=== PATIENT | female | born 1960 | race Caucasian/White ===

== ENCOUNTER 2017-08-16 12:11 | Inpatient (IN) | payer OTHER ==
[~2017-08-16] VITALS: Ht 160 cm; Wt 85.4 kg
[2017-08-16 12:11] VITALS: BP_SYST 180
[2017-08-16] MEDS ORDERED: hydrALAZINE HCL 25 MG TABLET PO ONE (12:30)
[2017-08-16 12:59] LABS: BASOPHILS # (AUTO) 0.1 K/uL (0.0-0.2); BASOPHILS % (AUTO) 0.6 % (0.0-2.0); EOSINOPHILS # (AUTO) 0.1 K/uL (0.0-0.4); EOSINOPHILS % (AUTO) 1.4 % (0.0-4.0); HEMATOCRIT 43.8 % (36-48); HEMOGLOBIN 14.1 g/dL (12.0-16.0); LYMPHOCYTES # (AUTO) 2.9 K/uL (1.0-5.5); LYMPHOCYTES % (AUTO) 30.7 % (20.5-51.5); MEAN CORPUSCULAR HEMOGLOBIN 28 pg (27-31); MEAN CORPUSCULAR HGB CONC 32 % (32-36); MEAN CORPUSCULAR VOLUME 87 fL (79.0-98.0); MONOCYTES # (AUTO) 0.7 K/uL (0.0-1.0); MONOCYTES % (AUTO) 7.2 % (1.7-9.3); NEUTROPHILS # (AUTO) 5.5 K/uL (1.8-7.7); NEUTROPHILS % (AUTO) 60.1 % (40.0-70.0); PLATELET COUNT (AUTO) 294 K/uL (130-430); RED BLOOD CELL COUNT(AUTO) 5.02 MIL/uL (4.2-6.2); RED CELL DISTRIBUTION WIDTH 13.3 % (9.0-15.0); WHITE BLOOD COUNT (AUTO) 9.3 K/uL (4.8-10.8)
[2017-08-16 13:02] LABS: CALCIUM 9.5 mg/dL (8.4-11.0); CREATININE 0.66 mg/dL (0.55-1.30); POTASSIUM 3.6 mmol/L (3.5-5.1)
[2017-08-16 13:16] LABS: ALBUMIN 4.1 g/dL (3.4-4.8); FREE T4 (FREE THYROXINE) 1.2 ng/dl (0.8-1.5); THYROID STIMULATING HORMONE 1.18 uIu/mL (0.36-3.74); TOTAL BILIRUBIN 0.4 mg/dL (0.0-1.0)
[2017-08-16] MEDS ORDERED: LOSA50TA3 PO (13:39)
[2017-08-16] MEDS ORDERED: LEVO88TA2 PO (13:39)
[2017-08-16] MEDS ORDERED: HYDROCHLOROTHIAZIDE 12.5 MG CAPSULE (HCTZ) PO ONE (13:45)
[2017-08-16] MEDS ORDERED: IBUPROFEN 800 MG TABLET PO ONE (14:00)
[2017-08-16] MEDS ORDERED: ONDANSETRON HCL 4 MG/2 ML VIAL IVP ONE (15:15)
[2017-08-16] MEDS ORDERED: NACL 0.9% 1,000 ML IV ONE (15:15)
[2017-08-16] MEDS ORDERED: LABETALOL 100 MG/ 20ML VIAL IVP ONE (15:15)
[2017-08-16 17:10] VITALS: BP_SYST 157
[2017-08-16 20:00] VITALS: BP_SYST 127
[2017-08-16] MEDS ORDERED: ZOLPIDEM TARTRATE 5 MG TABLET PO PRN (20:15)
[2017-08-16] MEDS ORDERED: LABETALOL 100 MG/ 20ML VIAL IVP PRN (20:15)
[2017-08-16] MEDS: PANTOPRAZOLE SODIUM 40 MG TAB PO SCH (20:43)
[2017-08-16] MEDS: CARVEDILOL 6.25 MG TABLET (COREG) PO SCH (20:44)
[2017-08-16] MEDS: ACETAMINOPHEN 325 MG TABLET PO PRN (20:45)
[2017-08-17 01:00] VITALS: BP_SYST 103
[2017-08-17 06:54] LABS: BASOPHILS % (AUTO) 0.5 % (0.0-2.0); EOSINOPHILS # (AUTO) 0.2 K/uL (0.0-0.4); EOSINOPHILS % (AUTO) 2.2 % (0.0-4.0); HEMATOCRIT 39.2 % (36-48); HEMOGLOBIN 12.9 g/dL (12.0-16.0); LYMPHOCYTES # (AUTO) 2.4 K/uL (1.0-5.5); MEAN CORPUSCULAR HEMOGLOBIN 29 pg (27-31); MEAN CORPUSCULAR HGB CONC 33 % (32-36); MEAN CORPUSCULAR VOLUME 87 fL (79.0-98.0); MONOCYTES # (AUTO) 0.6 K/uL (0.0-1.0); MONOCYTES % (AUTO) 8.2 % (1.7-9.3); NEUTROPHILS # (AUTO) 4.6 K/uL (1.8-7.7); NEUTROPHILS % (AUTO) 58.1 % (40.0-70.0); PLATELET COUNT (AUTO) 270 K/uL (130-430); RED BLOOD CELL COUNT(AUTO) 4.53 MIL/uL (4.2-6.2); RED CELL DISTRIBUTION WIDTH 13.5 % (9.0-15.0); WHITE BLOOD COUNT (AUTO) 7.8 K/uL (4.8-10.8)
[2017-08-17] MEDS ORDERED: LEVOTHYROXINE SODIUM 0.088 MG TABLET PO SCH (07:00)
[2017-08-17 07:07] LABS: CALCIUM 8.9 mg/dL (8.4-11.0); CREATININE 0.69 mg/dL (0.55-1.30)
[2017-08-17 07:45] LABS: ALBUMIN 3.5 g/dL (3.4-4.8); FREE T4 (FREE THYROXINE) 1.2 ng/dl (0.8-1.5); THYROID STIMULATING HORMONE 1.11 uIu/mL (0.36-3.74); TOTAL BILIRUBIN 0.6 mg/dL (0.0-1.0)
[2017-08-17 08:15] VITALS: BP_SYST 144
[2017-08-17] MEDS ORDERED: LOSARTAN POTASSIUM 50 MG TABLET (COZAAR) PO SCH ×2 (09:00)
[2017-08-17] MEDS: CARVEDILOL 6.25 MG TABLET (COREG) PO SCH (09:50)
[2017-08-17] MEDS: PANTOPRAZOLE SODIUM 40 MG TAB PO SCH (09:50)
[2017-08-17] MEDS: ACETAMINOPHEN 325 MG TABLET PO PRN (09:54)
[2017-08-17 11:50] LABS: BILIRUBIN,URINE NEGATIVE (NEGATIVE); BLOOD, URINE NEGATIVE (NEGATIVE); CLARITY/URINE CLEAR (CLEAR); COLOR,URINE YELLOW (YELLOW); GLUCOSE,URINE NEGATIVE (NEGATIVE); KETONES,URINE NEGATIVE (NEGATIVE); LEUKOCYTE ESTERASE ,URINE NEGATIVE (NEGATIVE); NITRITE, URINE NEGATIVE (NEGATIVE); PROTEIN URINE NEGATIVE (NEGATIVE); UROBILINOGEN,URINE 0.2 (0.2-1.0)
[2017-08-17 12:15] VITALS: BP_SYST 145
[2017-08-17 15:59] VITALS: BP_SYST 137
[2017-08-17] MEDS ORDERED: ASPI-1063 PO (16:08)
[2017-08-17] MEDS ORDERED: COR12.5 PO (16:08)
[2017-08-17 16:15] VITALS: BP_SYST 127
== END 2017-08-17 17:35 | disposition home or self-care (01) | DRG 305 ==
LOC: SED 12:11 → STU 16:35
PROVIDERS: ADMIT Internal Medicine; ATTEND Internal Medicine
DX: I10 Essential (primary) hypertension (principal); I65.29 Occlusion and stenosis of unspecified carotid artery; E03.9 Hypothyroidism, unspecified; E66.9 Obesity, unspecified; Z79.899 Other long term (current) drug therapy; Z88.6 Allergy status to analgesic agent; Z88.8 Allergy status to other drugs, medicaments and biological substances; Z68.33 Body mass index [BMI] 33.0-33.9, adult; Z82.49 Family history of ischemic heart disease and other diseases of the circulatory system; Z83.3 Family history of diabetes mellitus; Z90.710 Acquired absence of both cervix and uterus; Z98.51 Tubal ligation status
CPT/HCPCS: 36415; 70450-TC; 71010; 80053; 81003; 82306; 82607; 83036; 83735-TC; 84439; 84443-TC; 84484; 85025; 87040-TC; 93005; 93306; 93880; 96374; 96375; 99285; J2405; J3490; J7030

== ENCOUNTER 2017-08-24 09:12 | Outpatient (CLI) | payer OTHER ==
[~2017-08-24 09:12] MED LIST: ASPI-1063 PO; COR12.5 PO; LEVO88TA2 PO; LOSA50TA3 PO
== END 2017-08-24 20:25 | disposition home or self-care (01) ==
LOC: SMI 09:12
PROVIDERS: ATTEND Internal Medicine
DX: Z12.31 Encounter for screening mammogram for malignant neoplasm of breast (principal)
CPT/HCPCS: 70544; 70551; 77067

== ENCOUNTER 2017-11-10 09:50 | Inpatient (IN) | payer OTHER ==
[~2017-11-10] VITALS: Ht 160 cm; Wt 83.9 kg
[2017-11-10] VITALS (7 sets, daily range): BP systolic 129–162
--- NOTE | 2017-11-10 09:58 | NUR ---
Pt placed in bed 8
--- NOTE | 2017-11-10 10:01 | NUR ---
Pt complains of having blood in sputum in the morning at and at night since Monday. Pt states she went to the doctor and was placed on antibiotics. Pt states her highest fever was 102. Per patient, she feels nauseous possibly due to coughing but denies vomiting. No other injuries/complaints per patient or noted. Son at bedside.
[2017-11-10] MEDS ORDERED: ALBUTEROL SULFATE 0.083% 2.5 MG/3 ML VIAL.NEB INH ONE ×2 (10:30→10:45)
--- NOTE | 2017-11-10 10:30 | NUR ---
RT at patient bedside administering breathing treatment. Pt tolerated well.
--- NOTE | 2017-11-10 10:36 | NUR ---
ER Dr. Otto at bedside explaining results to patient.
[2017-11-10] MEDS ORDERED: LOSA100T11 PO (10:41)
--- NOTE | 2017-11-10 10:42 | NUR ---
Medication reconciliation completed with information provided by patient. Any prior medication reconciliation on file was reviewed and corrected.
[2017-11-10] MEDS ORDERED: LEVOFLOXACIN 500 MG/D5W 100 ML IV ONE (10:45)
[2017-11-10] MEDS ORDERED: NACL 0.9% 1,000 ML IV ONE (10:45)
--- NOTE | 2017-11-10 11:05 | NUR ---
Medications were given, pt tolerated well. No adverse reaction, will continue to monitor.
[2017-11-10 11:17] LABS: BILIRUBIN,URINE NEGATIVE (NEGATIVE); BLOOD, URINE NEGATIVE (NEGATIVE); CLARITY/URINE CLEAR (CLEAR); COLOR,URINE YELLOW (YELLOW); GLUCOSE,URINE NEGATIVE (NEGATIVE); KETONES,URINE NEGATIVE (NEGATIVE); LEUKOCYTE ESTERASE ,URINE NEGATIVE (NEGATIVE); NITRITE, URINE NEGATIVE (NEGATIVE); PH,URINE 6.5 (5.0-8.0); PROTEIN URINE NEGATIVE (NEGATIVE); UROBILINOGEN,URINE 0.2 (0.2-1.0)
[2017-11-10 11:19] LABS: BASOPHILS # (AUTO) 0.1 K/uL (0.0-0.2); BASOPHILS % (AUTO) 0.5 % (0.0-2.0); EOSINOPHILS % (AUTO) 0.2 % (0.0-4.0); HEMATOCRIT 42.2 % (36-48); HEMOGLOBIN 13.8 g/dL (12.0-16.0); LYMPHOCYTES % (AUTO) 14.1 % (20.5-51.5); MEAN CORPUSCULAR HEMOGLOBIN 28 pg (27-31); MEAN CORPUSCULAR HGB CONC 33 % (32-36); MEAN CORPUSCULAR VOLUME 85 fL (79.0-98.0); MONOCYTES # (AUTO) 0.9 K/uL (0.0-1.0); MONOCYTES % (AUTO) 6.5 % (1.7-9.3); NEUTROPHILS # (AUTO) 11.3 K/uL (1.8-7.7); NEUTROPHILS % (AUTO) 78.7 % (40.0-70.0); PLATELET COUNT (AUTO) 240 K/uL (130-430); RED BLOOD CELL COUNT(AUTO) 4.94 MIL/uL (4.2-6.2); RED CELL DISTRIBUTION WIDTH 12.8 % (9.0-15.0); WHITE BLOOD COUNT (AUTO) 14.3 K/uL (4.8-10.8)
[2017-11-10 11:43] LABS: POTASSIUM 3.2 mmol/L (3.5-5.1)
[2017-11-10 11:44] LABS: ALBUMIN 3.2 g/dL (3.4-4.8); CALCIUM 9.4 mg/dL (8.4-11.0); CREATININE 0.66 mg/dL (0.55-1.30); TOTAL BILIRUBIN 0.4 mg/dL (0.0-1.0)
[2017-11-10 12:06] LABS: PROTHROMBIN TIME 9.8 SECS (9.5-12.5)
--- NOTE | 2017-11-10 12:18 | NUR ---
Transfer to Telemetry via ACLS protocol. Licensed nurse present. IV present no signs or symptoms of infiltration.
--- NOTE | 2017-11-10 12:18 | NUR ---
Patient will be admitted to care of Dr. Lal. Admitted to Telemetry unit. Will go to room 111A. Belongings list completed. Summary report printed. Report will be given at bedside.
--- NOTE | 2017-11-10 12:21 | NUR ---
ADMISSION NOTE Received patient from ER via gurney. Patient admitted with diagnosis of Sepsis and PNA. Patient is awake, alert, oriented X 4. Patient oriented to hospital room, call light, toileting, pain management and safety-teach back done. Patient informed that Yvrose will be her nurse and that their room number is 111-A. Personal belongings checked and Belongings List documented. Call light within reach.
--- NOTE | 2017-11-10 13:00 | NUR ---
Note Report rec'd from Kristy admit RN for continuation of care. Pt was oriented to nursing routines and procedures at this time. Tele unit attached and intact at this time. Pt's IV in left hand intact and patent infusing IVF's well at this time. No needs noted. Call light within reach.
[2017-11-10] MEDS ORDERED: POTASSIUM CHLORIDE 20 MEQ TAB.PRT.SR PO ONE (15:00)
[2017-11-10] MEDS ORDERED: IBUPROFEN 600 MG TABLET PO PRN (15:00)
--- NOTE | 2017-11-10 15:10 | NUR ---
Note Pt was seen and assessed by Dr Lal at this time, orders written and carried out. Pt resting in bed had breathing treatments and IVF's infusing well through left hand at this time. Call light withinr each.
[2017-11-10] MEDS ORDERED: DEXTROSE 50% JECT 50 ML DISP.SYRIN IVP PRN (15:15)
[2017-11-10] MEDS ORDERED: PROMETHAZINE-DM 6.25 MG-15 MG/5 ML UDC PO PRN (15:15)
[2017-11-10] MEDS ORDERED: INSULIN REGULAR, HUMAN 100 UNITS/ML, 10 ML VIAL (novoLIN R) SUBCUT PRN (15:15)
[2017-11-10] MEDS ORDERED: PANTOPRAZOLE SODIUM 40 MG TAB ONE (15:35)
[2017-11-10] MEDS: LR 1,000 ML IV SCH (15:37)
[2017-11-10] MEDS: PANTOPRAZOLE SODIUM 40 MG TAB PO SCH ×2 (15:37→21:00)
[2017-11-10] MEDS ORDERED: LEVOFLOXACIN 250 MG/D5W 50 ML IV ONE (16:00)
[2017-11-10] MEDS: ALBUTEROL SULFATE 0.083% 2.5 MG/3 ML VIAL.NEB INH SCH ×3 (16:49→23:00)
--- NOTE | 2017-11-10 18:25 | NUR ---
Note Pt resting in bed. Pt receiving her breathing treatments as scheduled and as needed No SOB/resp distress or chest pain/discomfort noted at this time. Pt's tele unit attached and intact at this time. IV in left hand intact and patent infusing IVF's. Pt checked on q1' and PRN for needs and care. No needs noted at this time. Call light within reach.
--- NOTE | 2017-11-10 19:15 | NUR ---
change of shift.pt.presents stable status.pt.presents cough:nsg/rt to collect sputum.pt.presents respiratory status breathing pattern labored slight degree.no respiratory distress/discomfort.pt.presents iv fluids infusing via peripheral access;pt.has requested to be disconnect to attend to restroom.pt.has requested pajama pants;tracy day shift assisted. w/iv fluids lock procurement of the pajama pants.
--- NOTE | 2017-11-10 19:25 | NUR ---
Sydnee Marin, dialed [phone], s/w Arelis.
--- NOTE | 2017-11-10 20:00 | NUR ---
pt.assessed.v/s assessed;values w/in normal limits.no c/o pain,nausea.iv fluids re-connected iv fluids infusing. no c/o pain,nausea.i have apprised the pt.that snacks are available throughout the night.no requests@this hour. pt.has sated she will require her sleep medication.call light/telephone w/in the pt's reach.
--- NOTE | 2017-11-10 20:30 | NUR ---
i have assessed the blood glucose;111/mg dl.no requests@this hour. returned an earlier paged/reza. apprised me that no isolation:t/b was necessary for the pt.pt.had presented cough episodes manifesting blood.
--- NOTE | 2017-11-10 21:00 | NUR ---
2100p medications administered.vibramycin,restoril:30mg po x2 capsules.no requests@this hour. iv fluids dis-connected so to facilitate the pt's ambulation to the restroom.i awaited the pt's return to bed.i have re-connected the iv fluids.call light/telephone place w/in the pt's reach.
[2017-11-10] MEDS: DOXYCYCLINE HYCLATE 100 MG CAPSULE PO SCH (21:04)
[2017-11-10] MEDS: TEMAZEPAM 15 MG CAPSULE PO PRN (21:05)
--- NOTE | 2017-11-10 21:25 | NUR ---
CONSULT SPOKE WITH RN AND SAYS THAT HE SPOKE WITH DOCTOR HERMAN REGARDING CONSULT
--- NOTE | 2017-11-10 21:31 | NUR ---
CONSULT REASON PNA FOR BRITTNEE CHRISTIANSON IS CALL SPOKE WITH NANCY
--- NOTE | 2017-11-10 22:00 | NUR ---
pt.assessed.pt.presents quiescent affect;calm,somnolent.pt.capable to reposition self. pt.general status absent distress/discomfort.pt.respiratory status absent distress/discomfort slight labored breathing pattern.iv fluids infusing.call light/telephone w/in the pt's reach.
--- NOTE | 2017-11-10 23:00 | NUR ---
pt.requested assistance to the restroom:i have disconnected the iv line:facilitating the pt's ambulation. i have reconnected the iv access.no further requests@this hour.pt.return to somnolent status.call light/ telephone placed w/in the pt's reach.
--- NOTE | 2017-11-11 | NUR ---
pt.assessed.v/s assessed;values w/in normal; limits.pt.presents quiescent affect;calm,somnolent. pt.presents general status absent distress/discomfort.respiratory status absent distress/discomfort. pt.capable to reposition self.call light/telephone w/in the pt's reach.
[2017-11-11] MEDS: LR 1,000 ML IV SCH ×3 (01:00→18:07)
--- NOTE | 2017-11-11 02:00 | NUR ---
pt.assessed.pt.capable to reposition self.pt.presents quiescent affect;calm,somnolent. pt.presents general status absent distress/discomfort.respiratory status absent distress/ discomfort.iv fluids infusing.call light/telephone w/in the pt's reach.
--- NOTE | 2017-11-11 02:51 | NUR ---
pt.assisted to the restroom.i dis-connected the iv fluids.pt.presented coughing spasm episodes. i inquired if the pt.requests cough medication:phenergan is ordered/prn;cough.pt.stated she dislikes the taste of the phenergan but wll accept the medication w/ andrey crackers;i have administered the phenergan w/ andrey crackers.i have re-connected the iv fluids.no further requests@this hour.
[2017-11-11] MEDS: ALBUTEROL SULFATE 0.083% 2.5 MG/3 ML VIAL.NEB INH SCH ×5 (03:00→19:54)
--- NOTE | 2017-11-11 04:00 | NUR ---
pt.assessed.pt.capable to reposition self.pt.presents general status absent distress/discomfort. pt.presents respiratory status calm s/p phenergan administration.iv fluids infusing.call light/ telephone w/in the pt's reach.
--- NOTE | 2017-11-11 06:26 | NUR ---
pt.assessed.pt.present no c/o pain,nausea.i have change dthe iv fluids bag,i have assessed the blood glucose;108mg/dl.no requests@this hour.call light/telephone w/in the pt's reach.
[2017-11-11 06:36] LABS: CALCIUM 8.6 mg/dL (8.4-11.0); CREATININE 0.59 mg/dL (0.55-1.30); POTASSIUM 3.7 mmol/L (3.5-5.1)
[2017-11-11 07:20] LABS: BASOPHILS % (AUTO) 0.2 % (0.0-2.0); EOSINOPHILS # (AUTO) 0.1 K/uL (0.0-0.4); EOSINOPHILS % (AUTO) 0.7 % (0.0-4.0); HEMATOCRIT 35.8 % (36-48); HEMOGLOBIN 11.6 g/dL (12.0-16.0); LYMPHOCYTES # (AUTO) 2.3 K/uL (1.0-5.5); MEAN CORPUSCULAR HEMOGLOBIN 28 pg (27-31); MEAN CORPUSCULAR HGB CONC 32 % (32-36); MONOCYTES % (AUTO) 9.5 % (1.7-9.3); NEUTROPHILS # (AUTO) 7.6 K/uL (1.8-7.7); NEUTROPHILS % (AUTO) 68.6 % (40.0-70.0); PLATELET COUNT (AUTO) 244 K/uL (130-430); RED BLOOD CELL COUNT(AUTO) 4.11 MIL/uL (4.2-6.2); RED CELL DISTRIBUTION WIDTH 12.8 % (9.0-15.0)
[2017-11-11 07:57] LABS: MEAN CORPUSCULAR VOLUME 87 fL (79.0-98.0)
[2017-11-11 08:00] VITALS: BP_SYST 123
--- NOTE | 2017-11-11 08:00 | NUR ---
Nutrition Update Shant Scale 18 noted. Pt admitted for Sepsis, Pneumonia Diet: [facility] diet BMI: 32.8 kg/m2 RD to follow per nutrition care standards.
--- NOTE | 2017-11-11 08:00 | NUR ---
Opening Note Report received from [facility] shift nurse. Patient is resting in bed. Call light is within reach and bed is in low position. IV is on the left hand 22g running LR@100. Will continue to monitor.
[2017-11-11] MEDS: DOXYCYCLINE HYCLATE 100 MG CAPSULE PO SCH ×2 (08:36→20:58)
[2017-11-11] MEDS: PANTOPRAZOLE SODIUM 40 MG TAB PO SCH ×2 (08:36→20:58)
--- NOTE | 2017-11-11 10:17 | NUR ---
Rounds Patient is resting in bed. No signs of distress noted at the moment.
[2017-11-11 12:25] VITALS: BP_SYST 129
--- NOTE | 2017-11-11 12:37 | NUR ---
Rounds Patient is restin gin bed. Family is at the bedside.
--- NOTE | 2017-11-11 14:29 | NUR ---
Rounds Patient is in stable condition. No signs of distress noted.
--- NOTE | 2017-11-11 15:16 | NUR ---
Dietitian Recommendations *Recommend CCHO 2gm Na diet w/ Soymilk q meal. *Encouraged pt to increase PO intake. Please see Nutritional Assessment for details. GIUSEPPE, RD
--- NOTE | 2017-11-11 16:18 | NUR ---
Rounds SCDS applied. Patient education on the importance of having the SCDS in place.
[2017-11-11 16:33] VITALS: BP_SYST 137
--- NOTE | 2017-11-11 18:12 | NUR ---
Closing Note Assisted the patient to the restroom and back into bed. Iv is on the left hand 22g LR @100. Scds are on. Instructed patient on how to use the IS. Call light is within reach and bed is in low position. Will endorse care to the oncoming nurse.
--- NOTE | 2017-11-11 19:13 | NUR ---
OPENING NOTE RECEIVED REPORT FROM DAY SHIFT NURSE. PT IS IN BED RESTING. PT ON RA TOLERATING WELL. NO DISTRESS NOTED. PT HAS SCD TO LOWER LEGS. SAFETY MEASURES IN PLACE, BED TO LOWEST POSITION, CALL LIGHT IS ON, SIDE RAILS UPX3. WILL CONTINUE TO MONITOR.
[2017-11-11 19:44] VITALS: BP_SYST 145
[2017-11-11] MEDS: BUDESONIDE 0.5 MG/2 ML AMPUL.NEB INH SCH (20:05)
[2017-11-11] MEDS: CARVEDILOL 12.5 MG TABLET (COREG) PO SCH (20:58)
[2017-11-11] MEDS: methylPREDNISolone SOD SUCC/PF 62.5 MG/ML VIAL IVP SCH (20:59)
[2017-11-11] MEDS ORDERED: LOSARTAN POTASSIUM 50 MG TABLET (COZAAR) PO SCH (21:00)
[2017-11-11] MEDS: TEMAZEPAM 15 MG CAPSULE PO PRN (21:07)
--- NOTE | 2017-11-11 22:02 | NUR ---
ROUNDS ASSISTED PT TO BATHROOM. PT DENIES ANY DIZZINESS, PT HAS STEADY GAIT. NO DISTRESS NOTED. PT RESTING IN BED. NO SOB NOTED. SAFETY MEASURES IN PLACE, BED TO LOWEST POSITION, BED ALARM IS ON, SIDE RAILS UPX3, CALL LIGHT WITHIN REACH. ENCOURAGED TO USE CALL LIGHT. PT VERBALIZED UNDERSTANDING.
--- NOTE | 2017-11-12 00:24 | NUR ---
ROUNDS PT IS IN BED SLEEPING. NO SOB NOTED. NO DISTRESS NOTED. SAFETY MEASURES IN PLACE, BED TO LOWEST POSITION, BED ALARM IS ON, SIDE RAILS UPX3, CALL LIGHT WITHIN REACH. WILL CONTINUE TO MONITOR.
[2017-11-12 00:30] VITALS: BP_SYST 136
[2017-11-12] MEDS: LR 1,000 ML IV SCH (05:21)
--- NOTE | 2017-11-12 06:31 | NUR ---
CLOSING NOTE PT IS RESTING IN BED. PT ON RA TOLERATING WELL. PT HAS NON-PRODUCTIVE COUGH. NO SOB NOTED. PT HAS SCD'S TO LOWER LEGS. ENCOURAGED PT TO USE IS 5X EVERY HOUR. PT VERBALIZES UNDERSTANDING. SAFETY MEASURES IN PLACE, BED TO LOWEST POSITION, BED ALARM IS ON, SIDE RAILS UPX3, CALL LIGHT WITHIN REACH. WILL ENDORSE TO BLUEPRINT DUPLICATOR.
[2017-11-12] MEDS: LEVOTHYROXINE SODIUM 0.088 MG TABLET PO SCH (07:14)
[2017-11-12 07:25] LABS: BASOPHILS % (AUTO) 0.1 % (0.0-2.0); CALCIUM 9.7 mg/dL (8.4-11.0); CREATININE 0.59 mg/dL (0.55-1.30); HEMATOCRIT 39.9 % (36-48); HEMOGLOBIN 12.9 g/dL (12.0-16.0); LYMPHOCYTES # (AUTO) 1.2 K/uL (1.0-5.5); LYMPHOCYTES % (AUTO) 13.4 % (20.5-51.5); MEAN CORPUSCULAR HEMOGLOBIN 28 pg (27-31); MEAN CORPUSCULAR HGB CONC 32 % (32-36); MEAN CORPUSCULAR VOLUME 87 fL (79.0-98.0); MONOCYTES # (AUTO) 0.2 K/uL (0.0-1.0); MONOCYTES % (AUTO) 1.9 % (1.7-9.3); NEUTROPHILS # (AUTO) 7.5 K/uL (1.8-7.7); NEUTROPHILS % (AUTO) 84.6 % (40.0-70.0); PLATELET COUNT (AUTO) 336 K/uL (130-430); POTASSIUM 4.3 mmol/L (3.5-5.1); RED CELL DISTRIBUTION WIDTH 12.6 % (9.0-15.0); WHITE BLOOD COUNT (AUTO) 8.9 K/uL (4.8-10.8)
--- NOTE | 2017-11-12 07:35 | NUR ---
OPENING NOTE PATIENT REPORT RECEIVED FROM ENGINEER SOILS NURSE. PATIENT RESTING COMFORTABLY. NO COMPLAINTS OF PAIN AT THIS TIME. NO NOTABLE SIGNS OF DISTRESS AT THIS TIME. PATIENT HAVING NON PRODUCTIVE COUGH, AWARE OF PENDING SPUTUM CULTURE. PATIENT HAS SCDS APPLIED FOR DVT PROPHYLAXIS. PATIENT HAS IVF RUNNING PER MD ORDERS. PATIENT ENCOURAGED TO CALL IF NEEDS ARISE. WILL CONTINUE TO FOLLOW UP AND MONITOR PATIENT FOR CHANGES IN STATUS. FALL PRECAUTIONS ARE IN PLACE.
[2017-11-12] MEDS: ALBUTEROL SULFATE 0.083% 2.5 MG/3 ML VIAL.NEB INH SCH ×4 (07:36→20:09)
[2017-11-12] MEDS: BUDESONIDE 0.5 MG/2 ML AMPUL.NEB INH SCH ×2 (07:39→20:25)
[2017-11-12 08:12] VITALS: BP_SYST 132
[2017-11-12] MEDS: methylPREDNISolone SOD SUCC/PF 62.5 MG/ML VIAL IVP SCH (08:25)
[2017-11-12] MEDS: ASPIRIN 81 MG TABLET(ECOTRIN) PO SCH (08:26)
[2017-11-12] MEDS: PANTOPRAZOLE SODIUM 40 MG TAB PO SCH ×2 (08:26→21:02)
[2017-11-12] MEDS: DOXYCYCLINE HYCLATE 100 MG CAPSULE PO SCH ×2 (08:26→21:02)
[2017-11-12] MEDS: CARVEDILOL 12.5 MG TABLET (COREG) PO SCH ×2 (08:28→21:02)
[2017-11-12] MEDS ORDERED: LOSARTAN POTASSIUM 50 MG TABLET (COZAAR) PO SCH ×2 (09:00→21:00)
--- NOTE | 2017-11-12 10:26 | NUR ---
NOTE PATIENT RESTING COMFORTABLY. AMBULATORY TO RESTROOM. PATIENT NEEDS ARE MET AT THIS TIME. PATIENT ENCOURAGED TO CALL IF NEEDS ARISE. PATIENT RESUMED SCDs. WILL CONTINUE TO MONITOR AND FOLLOW UP WITH PATIENT.
[2017-11-12 12:10] VITALS: BP_SYST 133
--- NOTE | 2017-11-12 12:14 | NUR ---
NOTE PATIENT RESTING COMFORTABLY. NEEDS ARE MET AT THIS TIME. PER PATIENT REQUEST IV WAS FLUSHED NOW THAT NO MAINTENANCE FLUIDS ARE RUNNING. PATIENT HAVING NO NOTABLE SIGNS OF DISTRESS AT THIS TIME. PATIENT ENCOURAGED TO CALL IF NEEDS ARISE. WILL CONTINUE TO MONITOR PATIENT FOR CHANGES IN STATUS.
--- NOTE | 2017-11-12 14:44 | NUR ---
NOTE PATIENT RESTING COMFORTABLY. NEEDS ARE MET AT THIS TIME. PATIENT ENCOURAGED TO WALK AROUND IN ROOM. CALL IF NEEDS ARISE. PATIENT ENCOURAGED TO SIT UPRIGHT IN CHAIR TO GET SECRETIONS TO BEGIN MOVING. WILL CONTINUE TO FOLLOW UP AND MONITOR. INCENTIVE SPIROMETER AT 1999.
[2017-11-12 16:09] VITALS: BP_SYST 128
--- NOTE | 2017-11-12 16:15 | NUR ---
NOTE PATIENT RESTING COMFORTABLY. NEEDS ARE MET AT THIS TIME. PER PATIENT REQUEST IV WAS FLUSHED NOW THAT NO MAINTENANCE FLUIDS ARE RUNNING. 10 ML SALINE INFUSED. PATIENT HAVING NO NOTABLE SIGNS OF DISTRESS AT THIS TIME. PATIENT ENCOURAGED TO CALL IF NEEDS ARISE. WILL CONTINUE TO MONITOR PATIENT FOR CHANGES IN STATUS.
--- NOTE | 2017-11-12 19:00 | NUR ---
CLOSING NOTE AWAITING TO GIVE REPORT TO STUDENT FINANCE ADVISOR NURSE. PATIENT RESTING COMFORTABLY. NO COMPLAINTS OF PAIN AT THIS TIME. NO NOTABLE SIGNS OF DISTRESS AT THIS TIME. PATIENT HAVING NON PRODUCTIVE COUGH, AWARE OF PENDING SPUTUM CULTURE. ENCOURAGED TO COLLECT IF ABLE. PATIENT HAS SCDS APPLIED FOR DVT PROPHYLAXIS, CURRENTLY REMOVED PATIENT IS UP IN CHAIR EATING DINNER. PATIENT HAS IVF SALINE LOCKED PER MD ORDERS. PATIENT ENCOURAGED TO CALL IF NEEDS ARISE. FALL PRECAUTIONS ARE IN PLACE.
--- NOTE | 2017-11-12 19:37 | NUR ---
OPENING NOTE RECEIVED REPORT FROM DAY SHIFT NURSE. PT IS A/OX4, SITTING ON CHAIR AT BESIDE WATCHING TV. PT ON RA TOLERATING WELL. NO SOB NOTED. PT HAS NON PRODUCTIVE COUGH. NO DISTRESS NOTED. PT DENIES ANY PAIN. SAFETY MEASURES IN PLACE, BED TO LOWEST POSITION, SIDE RAILS UPX3, CALL LIGHT WITHIN REACH. ENCOURAGED PT TO USE CALL LIGHT. PT VERBALIZES UNDERSTANDING. WILL CONTINUE TO MONITOR.
[2017-11-12 20:03] VITALS: BP_SYST 129
[2017-11-12] MEDS: methylPREDNISolone SOD SUCC 40 MG/ML VIAL IVP SCH (21:01)
[2017-11-12] MEDS: TEMAZEPAM 15 MG CAPSULE PO PRN (21:03)
--- NOTE | 2017-11-12 21:55 | NUR ---
ROUNDS PT IN BED WATCHING TV. NO SOB NOTED. PT DENIES ANY PAIN. PT RECEIVED PRN INSOMNIA MEDICATION. SAFETY MEASURES IN PLACE, BED TO LOWEST POSITION, BED ALARM IN ON, SIDE RAILS UPX3, CALL LIGHT WITHIN REACH. ENCOURAGED PT TO USE CALL LIGHT. PT VERBALIZES UNDERSTANDING. WILL CONTINUE TO MONITOR.
[2017-11-12 23:15] VITALS: BP_SYST 111
--- NOTE | 2017-11-13 00:07 | NUR ---
ROUNDS PT SLEEPING IN BED. NO SOB NOTED. SAFETY MEASURES IN PLACE, BED TO LOWEST POSITION, BED ALARM IN ON, SIDE RAILS UPX3, CALL LIGHT WITHIN REACH. WILL CONTINUE TO MONITOR.
[2017-11-13] MEDS: LEVOTHYROXINE SODIUM 0.088 MG TABLET PO SCH (06:17)
--- NOTE | 2017-11-13 06:39 | NUR ---
CLOSING NOTE PT IS AWAKE RESTING IN BED. PT IS ON RA TOLERATING WELL. NO SOB NOTED. PT HAS NON-PRODUCTIVE COUGH. SAFETY MEASURES IN PLACE, BED TO LOWEST POSITION, SIDE RAILS UPX3, CALL LIGHT WITHIN REACH. WILL ENDORSE TO DAY SHIFT NURSE.
--- NOTE | 2017-11-13 07:35 | NUR ---
Initial Note Received report from the night nurse, Anne. Pt AOX4. No signs of distress noted at this time. Bed is at lowest position, but pt refuses the bed alarm. Pt is ambulatory. Call light within reach.
[2017-11-13 07:55] VITALS: BP_SYST 134
[2017-11-13] MEDS: ASPIRIN 81 MG TABLET(ECOTRIN) PO SCH (08:57)
[2017-11-13] MEDS: PANTOPRAZOLE SODIUM 40 MG TAB PO SCH (08:57)
[2017-11-13] MEDS: CARVEDILOL 12.5 MG TABLET (COREG) PO SCH (08:58)
[2017-11-13] MEDS: methylPREDNISolone SOD SUCC 40 MG/ML VIAL IVP SCH (08:58)
[2017-11-13] MEDS: DOXYCYCLINE HYCLATE 100 MG CAPSULE PO SCH (09:00)
[2017-11-13] MEDS: ALBUTEROL SULFATE 0.083% 2.5 MG/3 ML VIAL.NEB INH SCH ×3 (09:47→15:30)
[2017-11-13] MEDS: BUDESONIDE 0.5 MG/2 ML AMPUL.NEB INH SCH (09:47)
[2017-11-13 10:03] VITALS: BP_SYST 134
--- NOTE | 2017-11-13 11:28 | NUR ---
RN Rounds Pt awake and does not shows any signs of distress at this time. Bed is at lowest position, but pt refuses the bed alarm due to pt is ambulatory. Call light within reach.
[2017-11-13] MEDS ORDERED: DOXY100C2 PO (14:50)
[2017-11-13] MEDS ORDERED: ALBMDI INH (14:52)
[2017-11-13 15:17] VITALS: BP_SYST 128
--- NOTE | 2017-11-13 15:35 | NUR ---
Discharge Note Pt has been discharged home as order by Dr. Lal. Pt is in stable condition at the time of discharge. No signs of distress noted. Transitional care documents and instruction given to pt. IV line removed gauze and pressure applied. No signs of bleeding noted. ID band removed.
[2017-11-13 21:17] LABS: MYCOPLASMA PNEUMONIAE IgM <770 U/mL (0-769)
== END 2017-11-13 15:38 | disposition home or self-care (01) | DRG 871 ==
LOC: SED 09:50 → STU 11:37 → SMU 11-12 12:58
PROVIDERS: ADMIT Internal Medicine; ATTEND Internal Medicine
DX: A41.9 Sepsis, unspecified organism (principal); J18.9 Pneumonia, unspecified organism; J45.901 Unspecified asthma with (acute) exacerbation; E44.1 Mild protein-calorie malnutrition; E03.9 Hypothyroidism, unspecified; I10 Essential (primary) hypertension; J45.909 Unspecified asthma, uncomplicated; Z88.6 Allergy status to analgesic agent; Z88.1 Allergy status to other antibiotic agents; Z79.899 Other long term (current) drug therapy; Z68.32 Body mass index [BMI] 32.0-32.9, adult
CPT/HCPCS: 36415; 71045; 80048; 80053; 81003; 82962; 83036; 83605; 83880; 84484; 85025; 85610-TC; 86480; 86710; 86738; 87040-TC; 87449; 93005; 94010; 94640; 94760; 96365; 99285; J1030; J1815; J1956; J2930; J7030; J7120

== ENCOUNTER 2017-11-20 15:07 | Outpatient (CLI) | payer OTHER ==
[~2017-11-20 15:07] MED LIST changes: +ALBMDI INH; +DOXY100C2 PO; +LOSA100T11 PO
[2017-11-20 16:08] LABS: C-REACTIVE PROTEIN QUANT 0.3 mg/dL (0-0.5); CALCIUM 9.4 mg/dL (8.4-11.0); CREATININE 0.68 mg/dL (0.55-1.30)
[2017-11-20 16:18] LABS: BASOPHILS # (AUTO) 0.1 K/uL (0.0-0.2); BASOPHILS % (AUTO) 0.6 % (0.0-2.0); EOSINOPHILS # (AUTO) 0.1 K/uL (0.0-0.4); EOSINOPHILS % (AUTO) 1.7 % (0.0-4.0); HEMOGLOBIN 13.5 g/dL (12.0-16.0); MEAN CORPUSCULAR HEMOGLOBIN 28 pg (27-31); MEAN CORPUSCULAR HGB CONC 32 % (32-36); MEAN CORPUSCULAR VOLUME 87 fL (79.0-98.0); MONOCYTES # (AUTO) 0.7 K/uL (0.0-1.0); MONOCYTES % (AUTO) 7.7 % (1.7-9.3); NEUTROPHILS # (AUTO) 4.7 K/uL (1.8-7.7); PLATELET COUNT (AUTO) 432 K/uL (130-430); RED BLOOD CELL COUNT(AUTO) 4.84 MIL/uL (4.2-6.2); RED CELL DISTRIBUTION WIDTH 13.4 % (9.0-15.0); WHITE BLOOD COUNT (AUTO) 8.6 K/uL (4.8-10.8)
[2017-11-20 19:22] LABS: ERYTHROCYTE SEDIMENTATION RATE 12 MM/HR (0-20)
[2017-11-21 08:12] LABS: RA LATEX TURBID <10.0 IU/mL (0.0-13.9)
[2017-11-21 20:14] LABS: ANTI NUCLEAR AB WITH REFLEX Positive (Negative)
== END 2017-11-20 17:49 | disposition home or self-care (01) ==
LOC: SLB 15:07
PROVIDERS: ATTEND Internal Medicine
DX: J18.9 Pneumonia, unspecified organism (principal); M19.90 Unspecified osteoarthritis, unspecified site; I10 Essential (primary) hypertension; J45.909 Unspecified asthma, uncomplicated; Z82.49 Family history of ischemic heart disease and other diseases of the circulatory system; Z83.3 Family history of diabetes mellitus; Z79.899 Other long term (current) drug therapy
CPT/HCPCS: 36415; 80048; 85025; 85651-TC; 86038; 86060; 86140; 86431

== ENCOUNTER 2017-12-13 06:55 | Outpatient (CLI) | payer OTHER ==
[2017-12-13 07:42] LABS: BASOPHILS % (AUTO) 0.4 % (0.0-2.0); EOSINOPHILS # (AUTO) 0.1 K/uL (0.0-0.4); EOSINOPHILS % (AUTO) 1.7 % (0.0-4.0); HEMATOCRIT 41.2 % (36-48); HEMOGLOBIN 13.4 g/dL (12.0-16.0); LYMPHOCYTES # (AUTO) 2.7 K/uL (1.0-5.5); LYMPHOCYTES % (AUTO) 34.3 % (20.5-51.5); MEAN CORPUSCULAR HEMOGLOBIN 28 pg (27-31); MEAN CORPUSCULAR HGB CONC 33 % (32-36); MEAN CORPUSCULAR VOLUME 87 fL (79.0-98.0); MONOCYTES # (AUTO) 0.6 K/uL (0.0-1.0); MONOCYTES % (AUTO) 8.1 % (1.7-9.3); NEUTROPHILS # (AUTO) 4.6 K/uL (1.8-7.7); NEUTROPHILS % (AUTO) 55.5 % (40.0-70.0); PLATELET COUNT (AUTO) 294 K/uL (130-430); RED BLOOD CELL COUNT(AUTO) 4.73 MIL/uL (4.2-6.2); RED CELL DISTRIBUTION WIDTH 13.8 % (9.0-15.0)
[2017-12-13 07:55] LABS: ALBUMIN 3.8 g/dL (3.4-4.8); C-REACTIVE PROTEIN QUANT 1.1 mg/dL (0-0.5); CALCIUM 9.5 mg/dL (8.4-11.0); CREATININE 0.68 mg/dL (0.55-1.30); THYROID STIMULATING HORMONE 1.27 uIu/mL (0.34-4.82); TOTAL BILIRUBIN 0.5 mg/dL (0.0-1.0); URIC ACID 3.6 mg/dL (2.4-7.0)
[2017-12-13 10:14] LABS: ERYTHROCYTE SEDIMENTATION RATE 12 MM/HR (0-20)
== END 2017-12-13 20:00 | disposition home or self-care (01) ==
LOC: SLB 06:55
PROVIDERS: ATTEND Emergency Medicine
DX: M17.0 Bilateral primary osteoarthritis of knee (principal); M25.572 Pain in left ankle and joints of left foot; M25.571 Pain in right ankle and joints of right foot; M19.072 Primary osteoarthritis, left ankle and foot; M19.071 Primary osteoarthritis, right ankle and foot; M25.542 Pain in joints of left hand; M25.541 Pain in joints of right hand
CPT/HCPCS: 36415; 80053; 82306; 82550-TC; 82607; 84443-TC; 84550-TC; 85025; 85651-TC; 86140; 86200

== ENCOUNTER 2018-01-17 09:00 | Outpatient (CLI) | payer OTHER ==
[2018-01-19 08:06] LABS: COMPLEMENT C3, SERUM 150 mg/dL (82-167); COMPLEMENT C4, SERUM 25 mg/dL (14-44)
[2018-01-20 00:02] LABS: ANTI NUCLEAR AB WITH REFLEX Positive (Negative)
== END 2018-01-17 19:30 | disposition home or self-care (01) ==
LOC: SLB 09:00
DX: M19.90 Unspecified osteoarthritis, unspecified site (principal); M16.0 Bilateral primary osteoarthritis of hip
CPT/HCPCS: 36415; 72100-TC; 72202-TC; 73521; 81374; 85651-TC; 86038; 86140; 86160

== ENCOUNTER 2018-02-22 06:40 | Outpatient (CLI) | payer OTHER ==
[2018-02-22 08:37] LABS: BILIRUBIN,URINE NEGATIVE (NEGATIVE); BLOOD, URINE NEGATIVE (NEGATIVE); CLARITY/URINE CLEAR (CLEAR); COLOR,URINE YELLOW (YELLOW); GLUCOSE,URINE NEGATIVE (NEGATIVE); KETONES,URINE NEGATIVE (NEGATIVE); LEUKOCYTE ESTERASE ,URINE NEGATIVE (NEGATIVE); NITRITE, URINE NEGATIVE (NEGATIVE); PH,URINE 5.5 (5.0-8.0); PROTEIN URINE NEGATIVE (NEGATIVE); UROBILINOGEN,URINE 0.2 (0.2-1.0)
[2018-02-22 08:50] LABS: ALBUMIN 3.7 g/dL (3.4-4.8); CALCIUM 9.1 mg/dL (8.4-11.0); CREATININE 0.79 mg/dL (0.55-1.30); POTASSIUM 4.7 mmol/L (3.5-5.1); THYROID STIMULATING HORMONE 2.29 uIu/mL (0.34-4.82); TOTAL BILIRUBIN 0.4 mg/dL (0.0-1.0)
[2018-02-22 08:52] LABS: BASOPHILS % (AUTO) 0.6 % (0.0-2.0); EOSINOPHILS # (AUTO) 0.1 K/uL (0.0-0.4); EOSINOPHILS % (AUTO) 1.7 % (0.0-4.0); HEMATOCRIT 39.7 % (36-48); LYMPHOCYTES # (AUTO) 2.2 K/uL (1.0-5.5); LYMPHOCYTES % (AUTO) 29.7 % (20.5-51.5); MEAN CORPUSCULAR HEMOGLOBIN 29 pg (27-31); MEAN CORPUSCULAR HGB CONC 33 % (32-36); MEAN CORPUSCULAR VOLUME 88 fL (79.0-98.0); MONOCYTES # (AUTO) 0.5 K/uL (0.0-1.0); MONOCYTES % (AUTO) 6.3 % (1.7-9.3); NEUTROPHILS # (AUTO) 4.5 K/uL (1.8-7.7); NEUTROPHILS % (AUTO) 61.7 % (40.0-70.0); PLATELET COUNT (AUTO) 301 K/uL (130-430); RED BLOOD CELL COUNT(AUTO) 4.53 MIL/uL (4.2-6.2); RED CELL DISTRIBUTION WIDTH 13.1 % (9.0-15.0); WHITE BLOOD COUNT (AUTO) 7.3 K/uL (4.8-10.8)
== END 2018-02-22 20:26 | disposition home or self-care (01) ==
LOC: SLB 06:40
PROVIDERS: ATTEND Internal Medicine
DX: I10 Essential (primary) hypertension (principal); E66.9 Obesity, unspecified; E03.9 Hypothyroidism, unspecified; R79.89 Other specified abnormal findings of blood chemistry
CPT/HCPCS: 36415; 80053; 80061; 81003; 83036; 84443-TC; 85025

== ENCOUNTER 2018-02-23 07:52 | Outpatient (CLI) | payer OTHER | END 2018-02-23 19:31 | disposition home or self-care (01) | LOC: SMI 07:52 | PROVIDERS: ATTEND Internal Medicine | DX: M48.02 Spinal stenosis, cervical region (principal) | CPT/HCPCS: 72141 ==

== ENCOUNTER 2018-04-16 12:52 | Outpatient (CLI) | payer OTHER ==
[~2018-04-16 12:52] MED LIST changes: -ASPI-1063 PO; +ASPI-1154 PO; -LOSA100T11 PO; +LOSA100T3 PO
== END 2018-04-16 20:53 | disposition home or self-care (01) ==
LOC: SUS 12:52
PROVIDERS: ATTEND Internal Medicine
DX: I73.9 Peripheral vascular disease, unspecified (principal); M79.605 Pain in left leg; M79.604 Pain in right leg; I10 Essential (primary) hypertension; E03.9 Hypothyroidism, unspecified
CPT/HCPCS: 93923; 93970

== ENCOUNTER 2018-04-20 14:17 | Outpatient (CLI) | payer OTHER ==
[2018-04-20 14:42] LABS: BASOPHILS % (AUTO) 0.5 % (0.0-2.0); EOSINOPHILS # (AUTO) 0.2 K/uL (0.0-0.4); EOSINOPHILS % (AUTO) 2.2 % (0.0-4.0); HEMATOCRIT 38.2 % (36-48); HEMOGLOBIN 12.8 g/dL (12.0-16.0); LYMPHOCYTES # (AUTO) 2.9 K/uL (1.0-5.5); MEAN CORPUSCULAR HEMOGLOBIN 29 pg (27-31); MEAN CORPUSCULAR HGB CONC 34 % (32-36); MEAN CORPUSCULAR VOLUME 86 fL (79.0-98.0); MONOCYTES # (AUTO) 0.5 K/uL (0.0-1.0); MONOCYTES % (AUTO) 5.5 % (1.7-9.3); NEUTROPHILS # (AUTO) 5.8 K/uL (1.8-7.7); NEUTROPHILS % (AUTO) 60.8 % (40.0-70.0); PLATELET COUNT (AUTO) 286 K/uL (130-430); RED BLOOD CELL COUNT(AUTO) 4.44 MIL/uL (4.2-6.2); RED CELL DISTRIBUTION WIDTH 12.7 % (9.0-15.0); WHITE BLOOD COUNT (AUTO) 9.4 K/uL (4.8-10.8)
[2018-04-20 14:58] LABS: CALCIUM 8.9 mg/dL (8.4-11.0); CREATININE 0.8 mg/dL (0.55-1.30); POTASSIUM 3.8 mmol/L (3.5-5.1)
[2018-04-20 15:02] LABS: ALBUMIN 3.8 g/dL (3.4-4.8); C-REACTIVE PROTEIN QUANT 1.1 mg/dL (0-0.5); TOTAL BILIRUBIN 0.3 mg/dL (0.0-1.0)
[2018-04-20 15:13] LABS: ERYTHROCYTE SEDIMENTATION RATE 10 MM/HR (0-20)
== END 2018-04-20 20:12 | disposition home or self-care (01) ==
LOC: SLB 14:17
PROVIDERS: ATTEND Internal Medicine
DX: R60.1 Generalized edema (principal); I10 Essential (primary) hypertension; J45.909 Unspecified asthma, uncomplicated; E03.9 Hypothyroidism, unspecified
CPT/HCPCS: 36415; 80053; 82085; 82550-TC; 83880; 85025; 85651-TC; 86140

== ENCOUNTER 2018-05-10 07:38 | Outpatient (CLI) | payer OTHER ==
[2018-05-10 08:36] LABS: ALBUMIN 3.8 g/dL (3.4-4.8); CREATININE 0.8 mg/dL (0.55-1.30); TOTAL BILIRUBIN 0.6 mg/dL (0.0-1.0)
== END 2018-05-10 19:10 | disposition home or self-care (01) ==
LOC: SLB 07:38
PROVIDERS: ATTEND Internal Medicine
DX: I10 Essential (primary) hypertension (principal); E11.9 Type 2 diabetes mellitus without complications
CPT/HCPCS: 36415; 80053; 82550-TC; 83655; 84550-TC; 86618

== ENCOUNTER 2018-06-22 07:27 | Outpatient (CLI) | payer OTHER ==
[2018-06-22 08:34] LABS: ALBUMIN 3.5 g/dL (3.4-4.8); BILIRUBIN,DIRECT 0.1 mg/dL (0.0-0.3); TOTAL BILIRUBIN 0.5 mg/dL (0.0-1.0)
== END 2018-06-22 18:42 | disposition home or self-care (01) ==
LOC: SLB 07:27
PROVIDERS: ATTEND Internal Medicine Cardiovascular Disease
DX: R60.0 Localized edema (principal)
CPT/HCPCS: 36415; 80076; 83880

== ENCOUNTER 2018-07-20 07:25 | Outpatient (CLI) | payer OTHER ==
[2018-07-20 09:07] LABS: BILIRUBIN,URINE NEGATIVE (NEGATIVE); BLOOD, URINE NEGATIVE (NEGATIVE); CLARITY/URINE HAZY (CLEAR); COLOR,URINE YELLOW (YELLOW); GLUCOSE,URINE NEGATIVE (NEGATIVE); KETONES,URINE NEGATIVE (NEGATIVE); LEUKOCYTE ESTERASE ,URINE NEGATIVE (NEGATIVE); NITRITE, URINE POSITIVE (NEGATIVE); PROTEIN URINE NEGATIVE (NEGATIVE); UROBILINOGEN,URINE 0.2 (0.2-1.0)
[2018-07-20 09:13] LABS: ALBUMIN 3.7 g/dL (3.4-4.8); CALCIUM 9.4 mg/dL (8.4-11.0); CREATININE 0.6 mg/dL (0.55-1.30); POTASSIUM 4.3 mmol/L (3.5-5.1); THYROID STIMULATING HORMONE 1.69 uIu/mL (0.34-4.82); TOTAL BILIRUBIN 0.4 mg/dL (0.0-1.0)
[2018-07-20 09:19] LABS: BACTERIA,URINE MANY /HPF (None Seen); MUCUS,URINE None Seen /LPF (None Seen); RBC,URINE 0-3 /HPF (0-3); WBC,URINE 0-3 /HPF (0-3)
[2018-07-20 09:29] LABS: TOTAL IRON BIND. CAPACITY 289 ug/dL (250-450)
[2018-07-20 09:34] LABS: BASOPHILS % (AUTO) 0.4 % (0.0-2.0); EOSINOPHILS # (AUTO) 0.2 K/uL (0.0-0.4); EOSINOPHILS % (AUTO) 2.4 % (0.0-4.0); HEMATOCRIT 40.6 % (36-48); HEMOGLOBIN 13.2 g/dL (12.0-16.0); LYMPHOCYTES # (AUTO) 2.3 K/uL (1.0-5.5); LYMPHOCYTES % (AUTO) 25.6 % (20.5-51.5); MEAN CORPUSCULAR HEMOGLOBIN 29 pg (27-31); MEAN CORPUSCULAR HGB CONC 33 % (32-36); MEAN CORPUSCULAR VOLUME 88 fL (79.0-98.0); MONOCYTES # (AUTO) 0.6 K/uL (0.0-1.0); MONOCYTES % (AUTO) 6.8 % (1.7-9.3); NEUTROPHILS # (AUTO) 5.8 K/uL (1.8-7.7); NEUTROPHILS % (AUTO) 64.8 % (40.0-70.0); PLATELET COUNT (AUTO) 277 K/uL (130-430); RED BLOOD CELL COUNT(AUTO) 4.63 MIL/uL (4.2-6.2); WHITE BLOOD COUNT (AUTO) 8.9 K/uL (4.8-10.8)
[2018-07-21 14:15] LABS: HEMOGLOBIN A1C 6.8 % (4.8-5.6)
[2018-07-21 14:17] LABS: CREATININE, URINE 73.1 mg/dL; MICROALBUMIN URINE RANDOM 4.9 ug/ml (NOT ESTABLISHED); MICROALBUMIN/CREAT RATIO, UR 6.7 MG/G CRE (0.0-30.0)
== END 2018-07-20 21:09 | disposition home or self-care (01) ==
LOC: SLB 07:25
PROVIDERS: ATTEND Internal Medicine
DX: E11.65 Type 2 diabetes mellitus with hyperglycemia (principal); E78.5 Hyperlipidemia, unspecified; E03.9 Hypothyroidism, unspecified
CPT/HCPCS: 36415; 80053; 80061; 81000-TC; 82043; 82306; 82570; 83036; 83540-TC; 83550-TC; 84443-TC; 85025

== ENCOUNTER 2018-11-21 07:41 | Outpatient (CLI) | payer OTHER ==
[2018-11-21 08:31] LABS: BILIRUBIN,URINE NEGATIVE (NEGATIVE); BLOOD, URINE NEGATIVE (NEGATIVE); CLARITY/URINE CLEAR (CLEAR); COLOR,URINE YELLOW (YELLOW); GLUCOSE,URINE NEGATIVE (NEGATIVE); KETONES,URINE NEGATIVE (NEGATIVE); LEUKOCYTE ESTERASE ,URINE NEGATIVE (NEGATIVE); NITRITE, URINE NEGATIVE (NEGATIVE); PH,URINE 6.5 (5.0-8.0); PROTEIN URINE NEGATIVE (NEGATIVE); UROBILINOGEN,URINE 0.2 (0.2-1.0)
[2018-11-21 09:02] LABS: ALBUMIN 3.7 g/dL (3.4-4.8); CALCIUM 9.1 mg/dL (8.4-11.0); CREATININE 0.73 mg/dL (0.55-1.30); THYROID STIMULATING HORMONE 3.06 uIu/mL (0.34-4.82); TOTAL BILIRUBIN 0.6 mg/dL (0.0-1.0)
[2018-11-21 09:05] LABS: BASOPHILS % (AUTO) 0.5 % (0.0-2.0); EOSINOPHILS # (AUTO) 0.1 K/uL (0.0-0.4); EOSINOPHILS % (AUTO) 1.8 % (0.0-4.0); HEMATOCRIT 42.2 % (36-48); HEMOGLOBIN 13.9 g/dL (12.0-16.0); LYMPHOCYTES # (AUTO) 2.3 K/uL (1.0-5.5); LYMPHOCYTES % (AUTO) 28.8 % (20.5-51.5); MEAN CORPUSCULAR HEMOGLOBIN 29 pg (27-31); MEAN CORPUSCULAR HGB CONC 33 % (32-36); MEAN CORPUSCULAR VOLUME 87 fL (79.0-98.0); MONOCYTES # (AUTO) 0.5 K/uL (0.0-1.0); MONOCYTES % (AUTO) 6.2 % (1.7-9.3); NEUTROPHILS # (AUTO) 5.1 K/uL (1.8-7.7); NEUTROPHILS % (AUTO) 62.7 % (40.0-70.0); PLATELET COUNT (AUTO) 265 K/uL (130-430); RED BLOOD CELL COUNT(AUTO) 4.84 MIL/uL (4.2-6.2); RED CELL DISTRIBUTION WIDTH 13.6 % (9.0-15.0); WHITE BLOOD COUNT (AUTO) 8.1 K/uL (4.8-10.8)
== END 2018-11-21 21:27 | disposition home or self-care (01) ==
LOC: SMA 07:41
PROVIDERS: ATTEND Internal Medicine
DX: Z12.31 Encounter for screening mammogram for malignant neoplasm of breast (principal); I10 Essential (primary) hypertension; E03.9 Hypothyroidism, unspecified; E55.9 Vitamin D deficiency, unspecified; E78.5 Hyperlipidemia, unspecified; E11.65 Type 2 diabetes mellitus with hyperglycemia
CPT/HCPCS: 36415; 77067; 80053; 80061; 81003; 82306; 82607; 83036; 84443-TC; 85025

== ENCOUNTER 2019-05-17 07:15 | Outpatient (CLI) | payer OTHER ==
[~2019-05-17 07:15] MED LIST changes: -ASPI-1154 PO; +ASPI-1457 PO
[2019-05-17 08:33] LABS: BASOPHILS % (AUTO) 0.5 % (0.0-2.0); EOSINOPHILS # (AUTO) 0.2 K/uL (0.0-0.4); EOSINOPHILS % (AUTO) 2.9 % (0.0-4.0); HEMATOCRIT 39.4 % (36-48); HEMOGLOBIN 13.1 g/dL (12.0-16.0); LYMPHOCYTES # (AUTO) 2.2 K/uL (1.0-5.5); LYMPHOCYTES % (AUTO) 30.7 % (20.5-51.5); MEAN CORPUSCULAR HEMOGLOBIN 29 pg (27-31); MEAN CORPUSCULAR HGB CONC 33 % (32-36); MEAN CORPUSCULAR VOLUME 88 fL (79.0-98.0); MONOCYTES # (AUTO) 0.5 K/uL (0.0-1.0); MONOCYTES % (AUTO) 7.7 % (1.7-9.3); NEUTROPHILS # (AUTO) 4.1 K/uL (1.8-7.7); NEUTROPHILS % (AUTO) 58.2 % (40.0-70.0); PLATELET COUNT (AUTO) 238 K/uL (130-430); RED BLOOD CELL COUNT(AUTO) 4.48 MIL/uL (4.2-6.2); RED CELL DISTRIBUTION WIDTH 14.3 % (9.0-15.0)
[2019-05-17 09:35] LABS: ALBUMIN 3.6 g/dL (3.4-4.8); CREATININE 0.72 mg/dL (0.55-1.30); TOTAL BILIRUBIN 0.6 mg/dL (0.0-1.0); URIC ACID 4.2 mg/dL (2.4-7.0)
[2019-05-17 09:38] LABS: CALCIUM 8.9 mg/dL (8.4-11.0); THYROID STIMULATING HORMONE 5.06 uIu/mL (0.34-4.82)
[2019-05-18 14:52] LABS: HEMOGLOBIN A1C 7.2 % (4.8-5.6)
== END 2019-05-17 20:55 | disposition home or self-care (01) ==
LOC: SLB 07:15
PROVIDERS: ATTEND Internal Medicine
DX: E03.9 Hypothyroidism, unspecified (principal); I10 Essential (primary) hypertension; E66.09 Other obesity due to excess calories; M79.7 Fibromyalgia; E78.5 Hyperlipidemia, unspecified
CPT/HCPCS: 36415; 80053; 80061; 82306; 82607; 83036; 84443-TC; 84550-TC; 85025

== ENCOUNTER 2019-07-05 09:40 | Day surgery (SDC) | payer OTHER ==
[2019-07-01 13:08] LABS: BASOPHILS # (AUTO) 0.1 K/uL (0.0-0.2); BASOPHILS % (AUTO) 0.5 % (0.0-2.0); EOSINOPHILS # (AUTO) 0.1 K/uL (0.0-0.4); HEMATOCRIT 38.1 % (36-48); HEMOGLOBIN 12.9 g/dL (12.0-16.0); LYMPHOCYTES # (AUTO) 2.6 K/uL (1.0-5.5); LYMPHOCYTES % (AUTO) 24.7 % (20.5-51.5); MEAN CORPUSCULAR HEMOGLOBIN 30 pg (27-31); MEAN CORPUSCULAR HGB CONC 34 % (32-36); MEAN CORPUSCULAR VOLUME 88 fL (79.0-98.0); MONOCYTES # (AUTO) 0.7 K/uL (0.0-1.0); NEUTROPHILS % (AUTO) 66.8 % (40.0-70.0); PLATELET COUNT (AUTO) 243 K/uL (130-430); RED BLOOD CELL COUNT(AUTO) 4.31 MIL/uL (4.2-6.2); RED CELL DISTRIBUTION WIDTH 14.1 % (9.0-15.0); WHITE BLOOD COUNT (AUTO) 10.5 K/uL (4.8-10.8)
[2019-07-01 13:16] LABS: CREATININE 0.71 mg/dL (0.55-1.30); POTASSIUM 4.1 mmol/L (3.5-5.1)
[2019-07-01 13:19] LABS: BILIRUBIN,URINE NEGATIVE (NEGATIVE); BLOOD, URINE NEGATIVE (NEGATIVE); CLARITY/URINE CLEAR (CLEAR); COLOR,URINE YELLOW (YELLOW); GLUCOSE,URINE NEGATIVE (NEGATIVE); KETONES,URINE NEGATIVE (NEGATIVE); LEUKOCYTE ESTERASE ,URINE NEGATIVE (NEGATIVE); NITRITE, URINE NEGATIVE (NEGATIVE); PROTEIN URINE NEGATIVE (NEGATIVE); UROBILINOGEN,URINE 0.2 (0.2-1.0)
[2019-07-01 13:21] LABS: PROTHROMBIN TIME 10.3 SECS (9.5-12.5)
[~2019-07-05] VITALS: Ht 160 cm; Wt 85.3 kg
[2019-07-05] MEDS ORDERED: NS IRRIG SOLN 1000 ML IR ONE (12:00)
[2019-07-05] MEDS ORDERED: ONDANSETRON HCL 4 MG/2 ML VIAL IVP ONE (12:00)
[2019-07-05] MEDS ORDERED: PROPOFOL 200MG/ 20ML VIAL (DIPRIVAN) IV ONE (12:00)
[2019-07-05] MEDS ORDERED: MIDAZOLAM HCL 5 MG/5 ML VIAL IVP ONE (12:00)
[2019-07-05] MEDS ORDERED: fentaNYL CITRATE/PF 100 MCG/2 ML AMP IVP ONE (12:00)
[2019-07-05] MEDS ORDERED: SEVOFLURANE 15 MIN GAS INH ONE (12:00)
[2019-07-05] MEDS ORDERED: LR 1,000 ML IV SCH (12:40)
[2019-07-05] MEDS ORDERED: METOCLOPRAMIDE HCL 10 MG/2 ML VIAL IVP PRN (12:45)
[2019-07-05] MEDS ORDERED: MEPERIDINE HCL/PF 50 MG/ML AMP IVP PRN ×2 (12:45)
[2019-07-05] MEDS ORDERED: MEPERIDINE HCL/PF 25 MG/ML DISP.SYRIN IVP PRN (12:45)
[2019-07-05 15:31] VITALS: BP_SYST 128
== END 2019-07-05 15:30 | disposition home or self-care (01) ==
LOC: SDS 09:40 → SMU 09:40 → SDS 15:30
PROVIDERS: ATTEND Orthopaedic Surgery
DX: M65.311 Trigger thumb, right thumb (principal); M67.843 Other specified disorders of tendon, right hand; I10 Essential (primary) hypertension; E11.9 Type 2 diabetes mellitus without complications; E66.3 Overweight; Z88.5 Allergy status to narcotic agent; Z88.8 Allergy status to other drugs, medicaments and biological substances; Z98.890 Other specified postprocedural states; Z79.01 Long term (current) use of anticoagulants; Z90.710 Acquired absence of both cervix and uterus; Z98.51 Tubal ligation status
CPT/HCPCS: 26055; 26160; 36415; 71046; 80048; 81003; 85025; 85610; 85730; 93005; J2250; J2405; J2704; J3010; J7120

== ENCOUNTER 2019-12-30 08:05 | Outpatient (CLI) | payer OTHER ==
[2019-12-30 09:08] LABS: BASOPHILS % (AUTO) 0.4 % (0.0-2.0); EOSINOPHILS # (AUTO) 0.1 K/uL (0.0-0.4); EOSINOPHILS % (AUTO) 1.5 % (0.0-4.0); HEMATOCRIT 39.3 % (36-48); HEMOGLOBIN 13.1 g/dL (12.0-16.0); LYMPHOCYTES # (AUTO) 2.1 K/uL (1.0-5.5); LYMPHOCYTES % (AUTO) 29.3 % (20.5-51.5); MEAN CORPUSCULAR HEMOGLOBIN 29 pg (27-31); MEAN CORPUSCULAR HGB CONC 33 % (32-36); MEAN CORPUSCULAR VOLUME 86 fL (79.0-98.0); MONOCYTES # (AUTO) 0.5 K/uL (0.0-1.0); MONOCYTES % (AUTO) 6.4 % (1.7-9.3); NEUTROPHILS # (AUTO) 4.5 K/uL (1.8-7.7); NEUTROPHILS % (AUTO) 62.4 % (40.0-70.0); PLATELET COUNT (AUTO) 238 K/uL (130-430); RED BLOOD CELL COUNT(AUTO) 4.54 MIL/uL (4.2-6.2); WHITE BLOOD COUNT (AUTO) 7.2 K/uL (4.8-10.8)
[2019-12-30 09:28] LABS: ALBUMIN 3.4 g/dL (3.4-4.8); CALCIUM 8.6 mg/dL (8.4-11.0); CREATININE 0.77 mg/dL (0.55-1.30); POTASSIUM 3.9 mmol/L (3.5-5.1); THYROID STIMULATING HORMONE 1.23 uIu/mL (0.34-4.82); TOTAL BILIRUBIN 0.5 mg/dL (0.0-1.0)
[2019-12-30 09:46] LABS: BILIRUBIN,URINE NEGATIVE (NEGATIVE); BLOOD, URINE NEGATIVE (NEGATIVE); CLARITY/URINE SL CLOUDY (CLEAR); COLOR,URINE YELLOW (YELLOW); GLUCOSE,URINE NEGATIVE (NEGATIVE); KETONES,URINE NEGATIVE (NEGATIVE); LEUKOCYTE ESTERASE ,URINE TRACE (NEGATIVE); NITRITE, URINE NEGATIVE (NEGATIVE); PROTEIN URINE NEGATIVE (NEGATIVE); UROBILINOGEN,URINE 0.2 (0.2-1.0)
[2019-12-30 09:56] LABS: BACTERIA,URINE MANY /HPF (None Seen); MUCUS,URINE 1+ /LPF (None Seen)
== END 2019-12-30 21:13 | disposition home or self-care (01) ==
LOC: SMA 08:05
PROVIDERS: ATTEND Internal Medicine
DX: Z12.31 Encounter for screening mammogram for malignant neoplasm of breast (principal); Z00.00 Encounter for general adult medical examination without abnormal findings; M47.816 Spondylosis without myelopathy or radiculopathy, lumbar region; M51.26 Other intervertebral disc displacement, lumbar region
CPT/HCPCS: 36415; 72148; 72195; 77067; 80053; 80061; 81000-TC; 82306; 82607; 83036; 84443-TC; 84550-TC; 85025

== ENCOUNTER 2020-01-23 08:46 | Outpatient (CLI) | payer OTHER ==
[2020-01-23 10:14] LABS: BILIRUBIN,URINE NEGATIVE (NEGATIVE); BLOOD, URINE NEGATIVE (NEGATIVE); CLARITY/URINE CLEAR (CLEAR); COLOR,URINE YELLOW (YELLOW); GLUCOSE,URINE NEGATIVE (NEGATIVE); KETONES,URINE NEGATIVE (NEGATIVE); LEUKOCYTE ESTERASE ,URINE NEGATIVE (NEGATIVE); NITRITE, URINE NEGATIVE (NEGATIVE); PH,URINE 5.5 (5.0-8.0); PROTEIN URINE NEGATIVE (NEGATIVE); UROBILINOGEN,URINE 0.2 (0.2-1.0)
== END 2020-01-23 20:14 | disposition home or self-care (01) ==
LOC: SLB 08:46
PROVIDERS: ATTEND Internal Medicine
DX: N39.0 Urinary tract infection, site not specified (principal)
CPT/HCPCS: 81003; 87086; 87186-TC

== ENCOUNTER 2020-10-19 10:01 | Outpatient (CLI) | payer OTHER | END 2020-10-19 20:10 | disposition home or self-care (01) | LOC: SMI 10:01 | PROVIDERS: ATTEND Internal Medicine | DX: M51.26 Other intervertebral disc displacement, lumbar region (principal); M47.816 Spondylosis without myelopathy or radiculopathy, lumbar region | CPT/HCPCS: 72148 ==

== ENCOUNTER 2021-02-08 14:44 | Outpatient (CLI) | payer OTHER ==
[2021-02-08 15:25] LABS: BASOPHILS % (AUTO) 0.3 % (0.0-2.0); EOSINOPHILS # (AUTO) 0.2 K/uL (0.0-0.4); EOSINOPHILS % (AUTO) 2.3 % (0.0-4.0); HEMATOCRIT 40.6 % (36-48); HEMOGLOBIN 13.4 g/dL (12.0-16.0); LYMPHOCYTES % (AUTO) 30.7 % (20.5-51.5); MEAN CORPUSCULAR HEMOGLOBIN 29 pg (27-31); MEAN CORPUSCULAR HGB CONC 33 % (32-36); MEAN CORPUSCULAR VOLUME 88 fL (79.0-98.0); MONOCYTES # (AUTO) 0.8 K/uL (0.0-1.0); MONOCYTES % (AUTO) 7.6 % (1.7-9.3); NEUTROPHILS # (AUTO) 5.9 K/uL (1.8-7.7); NEUTROPHILS % (AUTO) 59.1 % (40.0-70.0); PLATELET COUNT (AUTO) 252 K/uL (130-430); RED BLOOD CELL COUNT(AUTO) 4.63 MIL/uL (4.2-6.2); RED CELL DISTRIBUTION WIDTH 13.7 % (9.0-15.0); WHITE BLOOD COUNT (AUTO) 9.9 K/uL (4.8-10.8)
[2021-02-08 15:57] LABS: BILIRUBIN,URINE NEGATIVE (NEGATIVE); BLOOD, URINE NEGATIVE (NEGATIVE); COLOR,URINE YELLOW (YELLOW); GLUCOSE,URINE NEGATIVE (NEGATIVE); KETONES,URINE NEGATIVE (NEGATIVE); LEUKOCYTE ESTERASE ,URINE NEGATIVE (NEGATIVE); NITRITE, URINE POSITIVE (NEGATIVE); PROTEIN URINE NEGATIVE (NEGATIVE); UROBILINOGEN,URINE 0.2 (0.2-1.0)
[2021-02-08 15:57] LABS: ALBUMIN 3.7 g/dL (3.4-4.8); CREATININE 0.76 mg/dL (0.55-1.30); POTASSIUM 4.2 mmol/L (3.5-5.1); THYROID STIMULATING HORMONE 1.68 uIu/mL (0.36-3.74); TOTAL BILIRUBIN 0.5 mg/dL (0.0-1.0)
[2021-02-08 16:03] LABS: CLARITY/URINE SLIGHTLY CLOUDY (CLEAR)
[2021-02-08 16:27] LABS: BACTERIA,URINE MANY /HPF (None Seen); MUCUS,URINE None Seen /LPF (None Seen); RBC,URINE 0-3 /HPF (0-3)
== END 2021-02-08 19:34 | disposition home or self-care (01) ==
LOC: SLB 14:44
PROVIDERS: ATTEND Internal Medicine
DX: E11.65 Type 2 diabetes mellitus with hyperglycemia (principal); E03.9 Hypothyroidism, unspecified; E66.09 Other obesity due to excess calories; I10 Essential (primary) hypertension; N30.90 Cystitis, unspecified without hematuria
CPT/HCPCS: 36415; 80053; 81000; 83735; 84443; 85025; 87086

== ENCOUNTER 2021-05-14 07:49 | Outpatient (CLI) | payer OTHER ==
[~2021-05-14 07:49] MED LIST changes: -DOXY100C2 PO; +DOXY100C5 PO
[2021-05-14 08:28] LABS: BASOPHILS % (AUTO) 0.5 % (0.0-2.0); EOSINOPHILS # (AUTO) 0.2 K/uL (0.0-0.4); EOSINOPHILS % (AUTO) 2.2 % (0.0-4.0); HEMOGLOBIN 13.8 g/dL (12.0-16.0); LYMPHOCYTES # (AUTO) 2.2 K/uL (1.0-5.5); LYMPHOCYTES % (AUTO) 24.3 % (20.5-51.5); MEAN CORPUSCULAR HEMOGLOBIN 30 pg (27-31); MEAN CORPUSCULAR HGB CONC 34 % (32-36); MEAN CORPUSCULAR VOLUME 88 fL (79.0-98.0); MONOCYTES # (AUTO) 0.7 K/uL (0.0-1.0); MONOCYTES % (AUTO) 8.2 % (1.7-9.3); NEUTROPHILS # (AUTO) 5.9 K/uL (1.8-7.7); NEUTROPHILS % (AUTO) 64.8 % (40.0-70.0); PLATELET COUNT (AUTO) 260 K/uL (130-430); RED BLOOD CELL COUNT(AUTO) 4.65 MIL/uL (4.2-6.2); RED CELL DISTRIBUTION WIDTH 13.5 % (9.0-15.0); WHITE BLOOD COUNT (AUTO) 9.1 K/uL (4.8-10.8)
[2021-05-14 09:13] LABS: ALBUMIN 3.7 g/dL (3.4-4.8); CALCIUM 8.7 mg/dL (8.4-11.0); CREATININE 0.73 mg/dL (0.55-1.30); POTASSIUM 3.8 mmol/L (3.5-5.1); THYROID STIMULATING HORMONE 1.68 uIu/mL (0.36-3.74); TOTAL BILIRUBIN 0.6 mg/dL (0.0-1.0)
[2021-05-14 09:38] LABS: BILIRUBIN,URINE NEGATIVE (NEGATIVE); BLOOD, URINE NEGATIVE (NEGATIVE); CLARITY/URINE CLEAR (CLEAR); COLOR,URINE YELLOW (YELLOW); GLUCOSE,URINE NEGATIVE (NEGATIVE); KETONES,URINE NEGATIVE (NEGATIVE); LEUKOCYTE ESTERASE ,URINE 1+ (NEGATIVE); NITRITE, URINE NEGATIVE (NEGATIVE); PROTEIN URINE NEGATIVE (NEGATIVE); UROBILINOGEN,URINE 0.2 (0.2-1.0)
[2021-05-14 09:54] LABS: BACTERIA,URINE MODERATE /HPF (None Seen); MUCUS,URINE 2+ /LPF (None Seen)
== END 2021-05-14 19:52 | disposition home or self-care (01) ==
LOC: SLB 07:49
PROVIDERS: ATTEND Internal Medicine
DX: E11.65 Type 2 diabetes mellitus with hyperglycemia (principal); I10 Essential (primary) hypertension; E78.5 Hyperlipidemia, unspecified
CPT/HCPCS: 36415; 80053; 80061; 81000; 83036; 84443; 85025; 87086

== ENCOUNTER 2021-06-25 10:53 | Outpatient (CLI) | payer OTHER ==
[2021-06-25 11:39] LABS: BILIRUBIN,URINE NEGATIVE (NEGATIVE); BLOOD, URINE NEGATIVE (NEGATIVE); CLARITY/URINE CLEAR (CLEAR); COLOR,URINE YELLOW (YELLOW); GLUCOSE,URINE 3+ (NEGATIVE); KETONES,URINE NEGATIVE (NEGATIVE); LEUKOCYTE ESTERASE ,URINE NEGATIVE (NEGATIVE); NITRITE, URINE NEGATIVE (NEGATIVE); PROTEIN URINE NEGATIVE (NEGATIVE); UROBILINOGEN,URINE 0.2 (0.2-1.0)
[2021-06-25 11:52] LABS: BACTERIA,URINE None Seen /HPF (None Seen); RBC,URINE 0-3 /HPF (0-3); WBC,URINE 0-3 /HPF (0-3)
== END 2021-06-26 16:58 | disposition home or self-care (01) ==
LOC: SLB 10:53
PROVIDERS: ATTEND Internal Medicine
DX: N39.0 Urinary tract infection, site not specified (principal)
CPT/HCPCS: 81000; 87086

== ENCOUNTER 2021-11-13 10:18 | Emergency (ER) | payer OTHER ==
[~2021-11-13] VITALS: Ht 160 cm; Wt 78.9 kg
[2021-11-13 10:21] VITALS: BP_SYST 172
--- NOTE | 2021-11-13 10:21 | NUR ---
Patient to ER bed 5 to gown for evaluation. Side rails up. Report given to MARIA MINA.
--- NOTE | 2021-11-13 10:30 | NUR ---
MD MATHUR AT BEDSIDE
--- NOTE | 2021-11-13 11:15 | NUR ---
Patient given written and verbal discharge instructions and verbalizes understanding. ER MD discussed with patient the results and treatment provided. Patient in stable condition. ID arm band removed. Rx of given. Patient educated on pain management and to follow up with PMD. Pain Scale 0/10. Opportunity for questions provided and answered. Medication side effect fact sheet provided.
[2021-11-13 11:28] VITALS: BP_SYST 145
== END 2021-11-13 11:15 | disposition home or self-care (01) ==
LOC: SED 10:18
DX: S50.10XA Contusion of unspecified forearm, initial encounter (principal); I10 Essential (primary) hypertension; Z88.6 Allergy status to analgesic agent; Z88.1 Allergy status to other antibiotic agents; Z88.5 Allergy status to narcotic agent
CPT/HCPCS: 73090; 99283

== ENCOUNTER 2022-01-24 08:11 | Outpatient (CLI) | payer OTHER | END 2022-01-24 20:46 | disposition home or self-care (01) | LOC: SMA 08:11 | PROVIDERS: ATTEND Internal Medicine | DX: Z12.31 Encounter for screening mammogram for malignant neoplasm of breast (principal) | CPT/HCPCS: 77067 ==

== ENCOUNTER 2022-02-22 07:32 | Outpatient (CLI) | payer OTHER | END 2022-02-22 19:10 | disposition home or self-care (01) | LOC: SRD 07:32 | DX: M17.0 Bilateral primary osteoarthritis of knee (principal); M76.892 Other specified enthesopathies of left lower limb, excluding foot; M76.891 Other specified enthesopathies of right lower limb, excluding foot; M25.561 Pain in right knee; M25.562 Pain in left knee; M77.11 Lateral epicondylitis, right elbow; M77.12 Lateral epicondylitis, left elbow ==

== ENCOUNTER → 2022-11-03 | Outpatient (CLI) | payer OTHER ==
[~2022-11-03] MED LIST changes: -LOSA100T3 PO; +LOSA100T4 PO
== END | disposition home or self-care (01) ==
LOC: SRD 13:48
DX: M79.641 Pain in right hand (principal); M79.642 Pain in left hand; M25.532 Pain in left wrist; M25.531 Pain in right wrist

== ENCOUNTER 2023-11-07 09:04 | Outpatient (CLI) | payer OTHER ==
[~2023-11-07 09:04] MED LIST changes: +LOSA-413 PO; +LOSA-415 PO; -LOSA100T4 PO; -LOSA50TA3 PO
== END 2023-11-07 21:09 | disposition home or self-care (01) ==
LOC: SMI 09:04
PROVIDERS: ATTEND Internal Medicine
DX: M51.36 Other intervertebral disc degeneration, lumbar region (principal); M47.816 Spondylosis without myelopathy or radiculopathy, lumbar region; M54.32 Sciatica, left side
CPT/HCPCS: 72148